=== PATIENT | male | born 1960 | race Caucasian/White ===

== ENCOUNTER 2025-01-27 06:29 | Day surgery (SDC) | payer MEDICARE ==
[2025-01-27] MEDS ORDERED: Propofol 200 MG/20 ML SDV IV ONE (06:30)
[2025-01-27] MEDS ORDERED: Ketamine 500 mg/10 ML MDV IV ONE (06:30)
[2025-01-27] MEDS ORDERED: Midazolam 1 MG/ML 2 ML SDV IV ONE (06:30)
[2025-01-27] MEDS ORDERED: Sodium Chloride 0.9% 10 ML Syringe FLUSH PRN (06:30)
[2025-01-27] MEDS: Lactated Ringers 1,000 ML IV SCH (07:28)
[2025-01-27] MEDS: Simethicone Drops 40 MG/0.6 ML 30 ML Bottle ONE (08:32)
== END 2025-01-27 09:45 | disposition home or self-care (01) ==
LOC: FB.SDS 06:29
PROVIDERS: ATTEND Surgery
DX: Z12.11 Encounter for screening for malignant neoplasm of colon (principal); D12.2 Benign neoplasm of ascending colon; K57.30 Diverticulosis of large intestine without perforation or abscess without bleeding; I10 Essential (primary) hypertension; E78.00 Pure hypercholesterolemia, unspecified; Z79.899 Other long term (current) drug therapy
CPT/HCPCS: 00811; 88305; A9270-GY; J2250; J2704; J3490; J7120